=== PATIENT | male | born 1945 | race Caucasian/White ===

== ENCOUNTER 2018-09-17 01:33 | Outpatient (CLI) | payer MEDICARE, BC | END 2018-09-17 23:59 | disposition home or self-care (01) | LOC: DIABETIC 01:33 | PROVIDERS: ATTEND Nurse Practitioner Family | DX: E11.22 Type 2 diabetes mellitus with diabetic chronic kidney disease (principal); N18.6 End stage renal disease; Z99.2 Dependence on renal dialysis; Z79.899 Other long term (current) drug therapy | CPT/HCPCS: G0108 ==

== ENCOUNTER 2019-09-29 09:06 | Day surgery (SDC) | payer MEDICARE, BC ==
[2019-09-24 15:46] LABS: BASOPHILS # (AUTO) 0.1 X10'3 (0-0.2); BASOPHILS % (AUTO) 0.9 % (0-1); EOSINOPHILS # (AUTO) 0.4 X10'3 (0-0.9); EOSINOPHILS % (AUTO) 5.4 % (0-6); LYMPHOCYTES # (AUTO) 1.5 X10'3 (1.1-4.8); MEAN CORPUSCULAR HEMOGLOBIN 31.7 PG (27.0-31.0); MEAN CORPUSCULAR HGB CONC 33.1 g/dL (33.0-36.5); MEAN CORPUSCULAR VOLUME 95.8 FL (78-98); MEAN PLATELET VOLUME 7.9 FL (7.4-10.4); MONOCYTES % (AUTO) 11.6 % (2-12); NEUTROPHILS # (AUTO) 5.3 X10'3 (1.8-7.7); NEUTROPHILS % (AUTO) 64.1 % (42-75); PRE OP HEMATOCRIT 34.4 % (42.0-52.0); PRE OP HEMOGLOBIN 11.4 g/dL (14.0-17.9); PRE OP PLATELET COUNT 260 X10'3 (140-440); RED CELL DISTRIBUTION WIDTH 13.9 % (11.5-14.5)
[2019-09-24 16:05] LABS: BLOOD UREA NITROGEN 80 MG/DL (7-18); BUN/CREATININE RATIO 7.6 (5.4-32.0); CALCIUM 9.1 MG/DL (8.5-10.1); CHLORIDE 98 MMOL/L (99-107); CREATININE 10.57 MG/DL (0.60-1.10); PRE OP ANION GAP 15 (8-16); PRE OP BILIRUB, TOTAL 0.4 MG/DL (0.0-1.0); PRE OP GLUCOSE 181 MG/DL (70-104); PRE OP POTASSIUM 4.2 MMOL/L (3.4-5.1); PRE OP PROTIME 10.1 SECONDS (9.0-12.0); PRE OP SODIUM 140 MMOL/L (135-145); TOTAL CARBON DIOXIDE 26.9 MMOL/L (24-32); TOTAL PROTEIN 7.8 G/DL (6.4-8.2); eGFR 5 ML/MIN
[2019-09-24 16:06] LABS: ALBUMIN 3.2 G/DL (3.4-5.0); ALBUMIN/GLOBULIN RATIO 0.7 (1.1-1.5); ALKALINE PHOSPHATASE 64 IU/L (46-116); PRE OP ALT 28 U/L (30-65); PRE OP AST 11 U/L (10-37)
[~2019-09-29] VITALS: Ht 170.2 cm; Wt 70.9 kg
[2019-09-29] VITALS (9 sets, daily range): BP systolic 133–160; BP diastolic 52–66
[~2019-09-29 09:06] MED LIST: DOCUMENT DATE & TIME OF BETA-BLOCKER PO ONE; GLIM4TAB7 PO; INSU100I29 SQ; LOVA40TA2 PO; NEBI10TA2 PO; OLME1TAB46 PO; SAW/1TAB2 PO; SUCR500T PO; VIT1CAPS9 PO; [UNRECOGNIZED DRUG - OTHER] PO; cefazolin/dext.iso 2gm/50ml 50 ML IV ONE; famotidine 20mg tablet PO ONE; normal saline 1000ml 1,000 ML IV SCH
[2019-09-29 10:15] LABS: ISTAT CREATININE 10.5 mg/dL (0.8-1.3); ISTAT HGB 11.9 g/dl (14.0-18.0); ISTAT IONIZED CALCIUM 1.17 mmol/L (1.03-1.32); ISTAT K 4.7 mmol/L (3.5-5.1)
[2019-09-29] MEDS ORDERED: heparin sodium, porcine/PF 100unit/ml 5ML syringe ONE (11:59)
[2019-09-29] MEDS ORDERED: mupirocin 2% ointment 22GM ONE (11:59)
[2019-09-29] MEDS ORDERED: BUPIVAcaine/PF 2.5 mg/ml (0.25%) 30ml vial ONE (11:59)
[2019-09-29] MEDS ORDERED: ceFAZolin 1000mg inj ONE (11:59)
[2019-09-29] MEDS ORDERED: sevoflurane 250ml liquid IH ONE (12:06)
[2019-09-29] MEDS ORDERED: ePHEDrine 50MG/ML INJ. ONE (12:06)
[2019-09-29] MEDS ORDERED: ringers solution, lacted 1,000 ML IV SCH (12:08)
[2019-09-29] MEDS ORDERED: ondansetron/PF 4mg/2ml inj IV PRN (12:10)
[2019-09-29] MEDS ORDERED: morphine 2 MG/ML inj. syringe IV PRN (12:10)
[2019-09-29] MEDS ORDERED: fentaNYL/PF 50MCG/1 ML 2ML syringe ONE (12:11)
[2019-09-29] MEDS ORDERED: LIDOcaine 2% (20mg/ml) 5ml vial ONE (12:42)
[2019-09-29] MEDS ORDERED: rocuronium 10mg/ml inj IV ONE (12:42)
[2019-09-29] MEDS ORDERED: propofol inj 20 ML IV ONE (12:42)
[2019-09-29] MEDS ORDERED: ondansetron/PF 4mg/2ml inj ONE (12:42)
[2019-09-29] MEDS ORDERED: sugammadex 200mg/2ml injection IV ONE (12:42)
--- NOTE | 2019-09-29 12:48 | NUR ---
Received from OR via [facility], accompanied by Anesthesiologist Eva and report given by Anesthesiolgist. O2 mask to 10L and sats 98%, all other VS stable. Surgical site to abdomen CDI 4x4 with PD catheter present. Pulses palpable. Pt responding to some questions. 20G IV to left forearm ICF LR 100cc/hr.
[2019-09-29] MEDS ORDERED: traMADol 50MG tablet PO ONE (14:00)
--- NOTE | 2019-09-29 14:08 | NUR ---
Pt discharged to vehicle without incident to vehicle after DC isntructions given to both patient and . Both verbalized understanding. Extensive education on surgical wound, PD care, pain meds etc. IV dc'd and they will call for follow up appointment. Pt tolerated fluids and ambulated prior to DC. Pain meds acalled in to pharmacy by Md office.
== END 2019-09-29 14:08 | disposition home or self-care (01) ==
LOC: PAS 09:06
PROVIDERS: ATTEND Surgery
DX: T85.691A Other mechanical complication of intraperitoneal dialysis catheter, initial encounter (principal); K42.9 Umbilical hernia without obstruction or gangrene; I12.0 Hypertensive chronic kidney disease with stage 5 chronic kidney disease or end stage renal disease; E11.22 Type 2 diabetes mellitus with diabetic chronic kidney disease; N18.6 End stage renal disease; Z79.899 Other long term (current) drug therapy; M19.90 Unspecified osteoarthritis, unspecified site; Z98.890 Other specified postprocedural states; Z79.4 Long term (current) use of insulin; Z91.09 Other allergy status, other than to drugs and biological substances; Z11.59 Encounter for screening for other viral diseases; Y83.8 Other surgical procedures as the cause of abnormal reaction of the patient, or of later complication, without mention of misadventure at the time of the procedure; Y92.89 Other specified places as the place of occurrence of the external cause
CPT/HCPCS: 36415; 49329; 49652; 80047; 80053; 82948; 85025; 85610; 85730; 93005; C9399; J0690; J1642; J2001; J2270; J2405; J2704; J3010; J3490; J7030; U0003; A4215; A4618; A6449; A7000

== ENCOUNTER 2019-10-20 11:10 | Outpatient (CLI) | payer MEDICARE, BC ==
[~2019-10-20 11:10] MED LIST changes: -DOCUMENT DATE & TIME OF BETA-BLOCKER PO ONE; -cefazolin/dext.iso 2gm/50ml 50 ML IV ONE; -famotidine 20mg tablet PO ONE; -normal saline 1000ml 1,000 ML IV SCH
== END 2019-10-20 14:20 | disposition home or self-care (01) ==
LOC: WOUND CARE 11:10 → EDSTATUS 11:20 → WOUND CARE 14:20
PROVIDERS: ATTEND Nurse Practitioner
DX: E11.622 Type 2 diabetes mellitus with other skin ulcer (principal); L98.492 Non-pressure chronic ulcer of skin of other sites with fat layer exposed; E11.22 Type 2 diabetes mellitus with diabetic chronic kidney disease; I12.0 Hypertensive chronic kidney disease with stage 5 chronic kidney disease or end stage renal disease; N18.6 End stage renal disease; M19.90 Unspecified osteoarthritis, unspecified site; K42.9 Umbilical hernia without obstruction or gangrene; Z79.4 Long term (current) use of insulin; Z79.899 Other long term (current) drug therapy; Z98.890 Other specified postprocedural states
CPT/HCPCS: 36416; 73130; 82948; G0463

== ENCOUNTER 2019-10-28 09:55 | Outpatient (CLI) | payer MEDICARE, BC | END 2019-10-28 10:25 | disposition home or self-care (01) | LOC: WOUND CARE 09:55 → EDSTATUS 10:00 → WOUND CARE 10:25 | PROVIDERS: ATTEND Nurse Practitioner | DX: E11.622 Type 2 diabetes mellitus with other skin ulcer (principal); L98.492 Non-pressure chronic ulcer of skin of other sites with fat layer exposed; E11.22 Type 2 diabetes mellitus with diabetic chronic kidney disease; I12.0 Hypertensive chronic kidney disease with stage 5 chronic kidney disease or end stage renal disease; N18.6 End stage renal disease; M19.90 Unspecified osteoarthritis, unspecified site; K42.9 Umbilical hernia without obstruction or gangrene; Z79.4 Long term (current) use of insulin; Z79.899 Other long term (current) drug therapy; Z98.890 Other specified postprocedural states | CPT/HCPCS: 36416; 82948; G0463 ==

== ENCOUNTER 2019-11-03 09:05 | Outpatient (CLI) | payer MEDICARE, BC ==
[2019-11-03] MEDS ORDERED: LIDOcaine 2% 5ml jelly ONE (09:33)
[2019-11-03 11:02] LABS: BASOPHILS # (AUTO) 0.1 X10'3 (0-0.2); BASOPHILS % (AUTO) 0.8 % (0-1); EOSINOPHILS # (AUTO) 0.4 X10'3 (0-0.9); LYMPHOCYTES # (AUTO) 1.2 X10'3 (1.1-4.8); MEAN CORPUSCULAR HEMOGLOBIN 32.1 PG (27.0-31.0); MEAN CORPUSCULAR HGB CONC 33.4 g/dL (33.0-36.5); MEAN CORPUSCULAR VOLUME 96.2 FL (78-98); MEAN PLATELET VOLUME 8.4 FL (7.4-10.4); MONOCYTES # (AUTO) 0.9 X10'3 (0-0.9); MONOCYTES % (AUTO) 9.4 % (2-12); NEUTROPHILS # (AUTO) 7.2 X10'3 (1.8-7.7); NEUTROPHILS % (AUTO) 73.8 % (42-75); PRE OP HEMATOCRIT 33.3 % (42.0-52.0); PRE OP HEMOGLOBIN 11.1 g/dL (14.0-17.9); PRE OP PLATELET COUNT 257 X10'3 (140-440); RED BLOOD COUNT 3.46 X10'6 (4.70-6.10); RED CELL DISTRIBUTION WIDTH 13.8 % (11.5-14.5)
[2019-11-03 11:20] LABS: ALBUMIN 3.3 G/DL (3.4-5.0); ALBUMIN/GLOBULIN RATIO 0.7 (1.1-1.5); ALKALINE PHOSPHATASE 90 IU/L (46-116); BLOOD UREA NITROGEN 102 MG/DL (7-18); BUN/CREATININE RATIO 6.9 (5.4-32.0); CHLORIDE 96 MMOL/L (99-107); CREATININE 14.74 MG/DL (0.60-1.10); PRE OP ALT 18 U/L (30-65); PRE OP ANION GAP 14 (8-16); PRE OP AST 6 U/L (10-37); PRE OP BILIRUB, TOTAL 0.4 MG/DL (0.0-1.0); PRE OP POTASSIUM 4.9 MMOL/L (3.4-5.1); PRE OP SODIUM 134 MMOL/L (135-145); TOTAL CARBON DIOXIDE 24.1 MMOL/L (24-32); TOTAL PROTEIN 7.8 G/DL (6.4-8.2); eGFR 3 ML/MIN
[2019-11-03 11:22] LABS: PRE OP GLUCOSE 229 MG/DL (70-104)
== END 2019-11-03 11:13 | disposition home or self-care (01) ==
LOC: WOUND CARE 09:05
PROVIDERS: ATTEND Nurse Practitioner
DX: E11.622 Type 2 diabetes mellitus with other skin ulcer (principal); L98.492 Non-pressure chronic ulcer of skin of other sites with fat layer exposed; E11.22 Type 2 diabetes mellitus with diabetic chronic kidney disease; I12.0 Hypertensive chronic kidney disease with stage 5 chronic kidney disease or end stage renal disease; N18.6 End stage renal disease; E11.65 Type 2 diabetes mellitus with hyperglycemia; M19.90 Unspecified osteoarthritis, unspecified site; K42.9 Umbilical hernia without obstruction or gangrene; H35.30 Unspecified macular degeneration; Z79.4 Long term (current) use of insulin; Z79.899 Other long term (current) drug therapy; Z98.890 Other specified postprocedural states; Z99.2 Dependence on renal dialysis
CPT/HCPCS: 36415; 36416; 80053; 82948; 83036; 85025; 85730; 93005; 97597; U0003

== ENCOUNTER 2019-11-10 08:31 | Day surgery (SDC) | payer MEDICARE, BC ==
[~2019-11-10] VITALS: Ht 170.2 cm; Wt 71.0 kg
[2019-11-10] VITALS (14 sets, daily range): BP systolic 113–136; BP diastolic 46–68
[~2019-11-10 08:31] MED LIST changes: -SUCR500T PO; +ceFAZolin 2gm in dextrose, iso 50 ML IV ONE; +famotidine 20mg tablet PO ONE; +ringers solution, lacted 1,000 ML IV SCH
[2019-11-10] MEDS ORDERED: LIDOcaine 0.5% (5mg/ml) 50ml vial ONE (11:58)
[2019-11-10] MEDS ORDERED: fentaNYL/PF 50MCG/1 ML 2ML syringe ONE (12:00)
[2019-11-10] MEDS ORDERED: MIDAZolam 5mg/5ml vial ONE (12:01)
[2019-11-10] MEDS ORDERED: ringers solution, lacted 1,000 ML IV SCH (12:11)
[2019-11-10] MEDS ORDERED: morphine 4 MG/ML inj SYRINge IV PRN (12:15)
[2019-11-10] MEDS ORDERED: fentaNYL/PF 50MCG/1 ML 2ML syringe IV PRN ×2 (12:15)
[2019-11-10] MEDS ORDERED: hydrALAZINE 20mg/ml inj. IV PRN (12:15)
[2019-11-10] MEDS ORDERED: labetalol 20mg/4ml (5mg/ml) syringe IV PRN (12:15)
[2019-11-10] MEDS ORDERED: ondansetron/PF 4mg/2ml inj IV PRN (12:15)
[2019-11-10] MEDS ORDERED: morphine 2 MG/ML inj. syringe IV PRN (12:15)
[2019-11-10] MEDS ORDERED: BUPIVAcaine/PF 2.5 mg/ml (0.25%) 30ml vial ONE (12:35)
[2019-11-10] MEDS ORDERED: ceFAZolin 1000mg inj ONE (12:35)
[2019-11-10] MEDS ORDERED: bacitracin 15gm ointment TP ONE (12:46)
--- NOTE | 2019-11-10 13:01 | NUR ---
Received from OR via [facility], accompanied by Anesthesiologist DR DURAN and report given by Anesthesiologist. PT DROWSY, DENIES PAIN, RIGHT MIDDLE FINGER W/GAUZE WRAP DRSG COVERING INCISION CDI, PT STATES HAND IS NUMB. 13:01 BS WAS 58, PT ASYMPTOMATIC 1 APPLE JUICE GIVEN, RECHECKED AT 13:11 BS WAS 46, 2ND APPLE JUICE GIVEN W/2 GRAHM CRACKERS W/PEANUT BUTTER, RECHECK BS 13:35 BS 53, RECHECK BS 13:42 BS 63, LAB DRAWN AND SENT TO LAB. PT ASYMPTOMATIC THROUGH ENTIRE EPISODE. DR DURAN NOTIFIED WELL. Addendum: 11/10/19 at 1356 by Senait Anglin RN Amended: Links added.
--- NOTE | 2019-11-10 15:19 | NUR ---
BS 92, PT REMAINS ASYMPTOMATIC AND IS FEELING WELL, DISCUSSED W/DR MELENDEZ AND ORDERS TO D/C PT TO HOME, D/C INSTRUCTIONS GIVEN AND GONE OVER W/PT WHO VERBALIZED UNDERSTANDING, PT D/CD TO HOME VIA W/C TO PRIVATE VEHICLE W/O INCIDENT. Addendum: 11/10/19 at 1541 by Senait Anglin RN Amended: Links added.
== END 2019-11-10 15:19 | disposition home or self-care (01) ==
LOC: PAS 08:31
PROVIDERS: ATTEND Orthopaedic Surgery
DX: L60.8 Other nail disorders (principal); R22.31 Localized swelling, mass and lump, right upper limb; C44.622 Squamous cell carcinoma of skin of right upper limb, including shoulder; E11.22 Type 2 diabetes mellitus with diabetic chronic kidney disease; I12.0 Hypertensive chronic kidney disease with stage 5 chronic kidney disease or end stage renal disease; N18.6 End stage renal disease; M19.90 Unspecified osteoarthritis, unspecified site; Z99.2 Dependence on renal dialysis; Z79.899 Other long term (current) drug therapy; Z98.890 Other specified postprocedural states; Z82.49 Family history of ischemic heart disease and other diseases of the circulatory system
CPT/HCPCS: 26115; 26951; 36415; 82947; 82948; A6222; J0690; J2001; J2250; J3010; J3490; A4215; A7000; J7120

== ENCOUNTER 2019-11-24 10:39 | Day surgery (SDC) | payer MEDICARE, BC ==
[~2019-11-24 10:39] MED LIST changes: -ceFAZolin 2gm in dextrose, iso 50 ML IV ONE; -famotidine 20mg tablet PO ONE; -ringers solution, lacted 1,000 ML IV SCH
[2019-11-24] MEDS ORDERED: LIDOcaine 2% 5ml jelly ONE (11:06)
== END 2019-11-24 12:14 | disposition home or self-care (01) ==
LOC: WOUND CARE 10:39
PROVIDERS: ATTEND Nurse Practitioner
DX: E11.622 Type 2 diabetes mellitus with other skin ulcer (principal); L98.492 Non-pressure chronic ulcer of skin of other sites with fat layer exposed; E11.22 Type 2 diabetes mellitus with diabetic chronic kidney disease; I12.0 Hypertensive chronic kidney disease with stage 5 chronic kidney disease or end stage renal disease; N18.6 End stage renal disease; E11.65 Type 2 diabetes mellitus with hyperglycemia; M19.90 Unspecified osteoarthritis, unspecified site; K42.9 Umbilical hernia without obstruction or gangrene; H35.30 Unspecified macular degeneration; Z79.4 Long term (current) use of insulin; Z79.899 Other long term (current) drug therapy; Z98.890 Other specified postprocedural states; Z99.2 Dependence on renal dialysis
CPT/HCPCS: 97597

== ENCOUNTER 2019-12-01 10:12 | Outpatient (CLI) | payer MEDICARE, BC | END 2019-12-01 10:48 | disposition home or self-care (01) | LOC: WOUND CARE 10:12 → EDSTATUS 10:40 → WOUND CARE 10:48 | PROVIDERS: ATTEND Nurse Practitioner | DX: E11.622 Type 2 diabetes mellitus with other skin ulcer (principal); L98.492 Non-pressure chronic ulcer of skin of other sites with fat layer exposed; E11.22 Type 2 diabetes mellitus with diabetic chronic kidney disease; I12.0 Hypertensive chronic kidney disease with stage 5 chronic kidney disease or end stage renal disease; N18.6 End stage renal disease; E11.65 Type 2 diabetes mellitus with hyperglycemia; M19.90 Unspecified osteoarthritis, unspecified site; K42.9 Umbilical hernia without obstruction or gangrene; H35.30 Unspecified macular degeneration; Z79.4 Long term (current) use of insulin; Z79.899 Other long term (current) drug therapy; Z98.890 Other specified postprocedural states; Z99.2 Dependence on renal dialysis | CPT/HCPCS: 82948; 97597 ==

== ENCOUNTER 2023-01-21 06:12 | Day surgery (SDC) | payer MEDICARE, BC ==
[2023-01-21 06:39] VITALS: BP 169/68; PULSE 68; RESP 14; TEMP 98; O2SAT 91
[2023-01-21] MEDS ORDERED: PANT40TA54 PO (06:45)
[2023-01-21] MEDS ORDERED: HYDR-4069 PO (06:45)
[2023-01-21] MEDS ORDERED: IPRA30SP BOTHNARES (06:45)
[2023-01-21] MEDS ORDERED: SEVE800T28 PO (06:47)
[2023-01-21] MEDS ORDERED: ALPH600C3 PO (06:49)
[2023-01-21 08:32] VITALS: O2SAT 91
[2023-01-21 08:45] VITALS: BP 169/89; PULSE 64; RESP 16; O2SAT 92
[2023-01-21 09:00] VITALS: BP 171/67; PULSE 60; RESP 16; O2SAT 92
[2023-01-21 09:16] VITALS: BP 174/70; PULSE 61; RESP 16; O2SAT 93
== END 2023-01-21 09:30 | disposition home or self-care (01) ==
LOC: SSTAY O 06:12
PROVIDERS: ATTEND Radiology Diagnostic Radiology
DX: J90 Pleural effusion, not elsewhere classified (principal); E11.22 Type 2 diabetes mellitus with diabetic chronic kidney disease; I12.0 Hypertensive chronic kidney disease with stage 5 chronic kidney disease or end stage renal disease; N18.6 End stage renal disease; K21.9 Gastro-esophageal reflux disease without esophagitis; G47.30 Sleep apnea, unspecified; Z99.2 Dependence on renal dialysis; Z79.4 Long term (current) use of insulin; Z79.899 Other long term (current) drug therapy
CPT/HCPCS: 32555; C1729; J3490